=== PATIENT | female | born 1985 | race Caucasian/White ===

== ENCOUNTER 2023-06-13 15:46 | Emergency (ER) | payer OTHER, SELFPAY ==
[2023-06-13] VITALS (19 sets, daily range): BP systolic 123–159; BP diastolic 71–109; PULSE 68–100; RESP 10–25; TEMP 36.9; O2SAT 95–100
--- NOTE | ~2023-06-13 | CT_ITS ---
EXAMINATION: CTA brain carotid DATE: 06/13/2023 20:38 INDICATION: Left-sided headache. Neck pain. TECHNIQUE: Computed tomographic angiography (CTA) of the head was performed without and with 100 mL O mnipaque-350 intravenous contrast. CTA of the neck was performed with intravenous contrast. Automated exposure control and iterative reconstruction technique were employed. The dose-length product was 1 648.55 mGy-cm. Maximum intensity projection and volume rendered 3D-reconstructions were created by michael smith technologist on a separate workstation. COMPARISON: None. FINDINGS: HEAD CTA: There is no intracranial hemorrhage, acute infarction, or abnormal intracranial mass lesion . The ventricles are normal in size. There is mild mucosal thickening in the paranasal sinuses. The m astoid air cells are normal. The orbits are normal. Right vertebral artery is dominant. There is no s ignificant stenosis of basilar artery or the posterior cerebral arteries. The posterior communicating arteries are normal. There is no significant stenosis of the intracranial internal carotid arteries or anterior or middle cerebral arteries. Anterior communicating artery is normal. There is no aneurys m. NECK CTA: There are blebs at the lung apices. There is mild scarring at the lung apices. There are no pathologically enlarged lymph nodes. There is no significant stenosis of the vertebral arteries. The re is no visible plaque in the proximal internal carotid arteries. There is 0% stenosis of the proxim al right internal carotid artery relative to normal distal artery lumen diameter (NASCET criteria). T here is 0% stenosis of the proximal left internal carotid artery relative to normal distal artery lum en diameter. There is mild cervical spondylosis. IMPRESSION: 1. Normal brain. 2. No aneurysm or significant intracranial arterial stenosis. 3. 0% stenosis of the proximal internal carotid arteries relative to normal distal artery lumen diame ters (NASCET criteria). Reviewed, dictated and finalized at location E. IMPRESSION: 1. Normal brain. 2. No aneurysm or significant intracranial arterial stenosis. 3. 0% stenosis of the proximal internal carotid arteries relative to normal dis reid artery lumen diameters (NASCET criteria).
--- NOTE | 2023-06-13 19:08 | ED.HA ---
HPI - Headache General Chief Complaint: Headache Stated Complaint: Headache Time Seen by Provider: 06/13/23 18:37 History of Present Illness HPI Narrative: Patient is a 37-year-old female presenting with headache and neck pain. Patient states that for the last 5 to 7 days she has been having left-sided headaches that go into her neck. States that her neck is very tender on the left side just below her ear. She was seen in urgent care earlier this week and started on cetirizine and Augmentin. She denies nasal congestion, ear pain or drainage, cough, shortness of breath. No fevers or chills. States that she has been taking Tylenol and ibuprofen with temporary relief. No vision changes, numbness or weakness, nuchal rigidity. No chest pain, cough, abdominal pain, nausea or vomiting, diarrhea, rashes, dysuria, leg swelling. Related Data Allergies Allergy/AdvReac Type Severity Reaction Status Date / Time diphenhydramine Allergy Itching Verified 06/13/23 16:15 [From Benadryl] DIPHENHYDRAMINE HCL Allergy ITCHING Uncoded 07/24/13 15:27 Review of Systems Review of Systems: All systems reviewed & are unremarkable except as noted in HPI and below Exam Narrative: GENERAL: Well-appearing and in no acute distress. HEAD: Normocephalic, atraumatic. EYES: PERRLA and EOMI. ENT: TM's not bulging or erythematous; no mastoid or temporal tenderness; tender just inferior to left ear lobe, no erythema or rashes noted NECK: Supple. CHEST: Clear to auscultation. No respiratory distress. HEART: Regular rate and rhythm. ABDOMEN: Soft, nontender, nondistended EXTREMITIES: Normal range of motion. No edema. SKIN: Warm, dry, no rash. NEURO: No focal deficits. Alert and oriented x3. PSYCH: Normal mood and affect. Course Vital Signs Vital signs: Vital Signs Temperature 98.5 F 06/13/23 16:09 Pulse Rate 74 06/13/23 16:09 Respiratory Rate 18 06/13/23 16:09 Blood Pressure 133/94 H 06/13/23 16:09 Pulse Oximetry 100 06/13/23 16:09 Oxygen Delivery Room Air 06/13/23 16:09 Temperature 98.5 F 06/13/23 16:09 Pulse Rate 68 06/13/23 22:23 Respiratory Rate 14 06/13/23 22:23 Blood Pressure 123/71 06/13/23 22:23 Pulse Oximetry 100 06/13/23 22:23 Oxygen Delivery Room Air 06/13/23 18:47 MDM - Headache MDM Narrative Medical decision making narrative: Patient is a 37-year-old female presenting with left-sided headache and left-sided neck pain. Vitals are stable. Exam remarkable for the above. Neurologically intact. Blood work is unremarkable. CTA shows no acute abnormalities. No vascular or intracranial abnormalities. There is evidence of sinusitis. On reevaluation, the patient states that her headache has resolved. She has been able to sleep. Discussed the reassuring work-up. Advised that she continue taking the Augmentin for her sinusitis. Advised that she follow-up closely with primary care. Appropriate return precautions given. Patient voiced understanding and is agreeable with plan. Discharged in stable condition. Differential Diagnosis Differential diagnosis: Likely migraine, tension headache, headache and sinusitis Medical Records Attestation: I reviewed the patient's medical records. Lab Data Attestation: I reviewed the patient's lab results. 06/13/23 19:49 06/13/23 19:49 Labs: Lab Results 06/13/23 Range/Units 19:49 WBC 9.4 (4.5-10.0) K/mm3 RBC 4.40 (4.2-5.4) M/mm3 Hgb 14.6 (12.0-15.0) g/dL Hct 43.5 (37.0-47.0) % MCV 98.9 (80-100) fl MCH 33.2 (26-34) pg MCHC 33.6 (32-36) g/dl RDW 11.5 (11.5-14.5) % Plt Count 226 (150-375) k/mm3 MPV 9.7 (7.4-10.4) fl Immature Gran % (Auto) 0.1 (0-0.5) % Neut % (Auto) 50.5 (45.5-73.1) % Lymph % (Auto) 40.2 (18.3-44.2) % Centre % (Auto) 7.3 (2.6-8.5) % Eos % (Auto) 1.6 (0-4.4) % Baso % (Auto) 0.3 (0.2-1.2) % Lymph # (Auto) 3.76 H (0.9-3.2) K/mm3 Centre # (Auto) 0.7 H
[2023-06-13] MEDS: KETOROLAC 30 MG/ML VIAL (*BKC) IV PUSH (19:53)
[2023-06-13] MEDS: SODIUM CHLORIDE 0.9% IV 1,000 ML 999 ML IV CONT (19:53)
[2023-06-13 19:54] LABS: Basophils Percent Auto 0.3 % (0.2-1.2); Eosinophils Absolute Auto 0.2 K/mm3 (0-0.3); Eosinophils Percent Auto 1.6 % (0-4.4); Hematocrit 43.5 % (37.0-47.0); Hemoglobin 14.6 g/dL (12.0-15.0); Immature Granulocyte Absolute 0.01 K/mm3 (0.00-0.031); Immature Granulocyte Percent A 0.1 % (0-0.5); Lymphocytes Absolute Auto 3.76 K/mm3 (0.9-3.2); Lymphocytes Percent Auto 40.2 % (18.3-44.2); Mean Corpuscular HGB Conc 33.6 g/dl (32-36); Mean Corpuscular Hemoglobin 33.2 pg (26-34); Mean Corpuscular Volume 98.9 fl (80-100); Mean Platelet Volume 9.7 fl (7.4-10.4); Monocytes Absolute Auto 0.7 K/mm3 (0.1-0.6); Monocytes Percent Auto 7.3 % (2.6-8.5); Neutrophils Absolute Auto 4.7 K/mm3 (1.3-6.7); Neutrophils Percent Auto 50.5 % (45.5-73.1); Platelet Count Result 226 k/mm3 (150-375); Red Cell Distribution Width 11.5 % (11.5-14.5); White Blood Count 9.4 K/mm3 (4.5-10.0)
[2023-06-13] MEDS: PROCHLORPERAZINE EDISYLATE 10 MG/2 ML VIAL IV PUSH (19:54)
[2023-06-13 20:06] LABS: Alanine Aminotransferase 15 U/L (6-35); Albumin Level 4.5 g/dL (3.5-5.1); Alkaline Phosphatase 73 U/L (38-126); Anion Gap 9 mmol/L (8-16); Aspartate Amino Transferase 24 U/L (14-36); Bilirubin,Total 0.5 mg/dL (0.2-1.3); Blood Urea Nitrogen 9 mg/dL (7-17); Calcium 9.2 mg/dL (8.4-10.2); Carbon Dioxide 27 mmol/L (22-30); Chloride 100 mmol/L (98-107); Estimated CRCL calculation 99 ml/min; Estimated Glomerular Filt Rate > 60; Glucose 84 mg/dL (65-110); Potassium 3.8 mmol/L (3.4-5.0); Sodium 136 mmol/L (137-145)
== END 2023-06-13 21:55 | disposition home or self-care (01) ==
PROVIDERS: Emergency Provider Emergency Medicine
DX: R51.9 Headache, unspecified (principal); J32.9 Chronic sinusitis, unspecified
CPT/HCPCS: 36415; 70496; 70498; 80053; 85025; 96361; 96374; 96375; 99284; J0780; J1885; J7030; Q9967